=== PATIENT | male | born 1960 | race African-American/Black ===

== ENCOUNTER 2020-07-13 19:25 | Inpatient (IN) | payer MEDICAID, OTHER ==
[~2020-07-13] VITALS: Ht 177.8 cm; Wt 61.9 kg
[2020-07-13] MEDS ORDERED: dilTIAZem 25 MG/5 ML VIAL IV ONE (20:00)
[2020-07-13] MEDS ORDERED: dilTIAZem HCL 60 MG TAB PO ONE (20:00)
[2020-07-13 20:20] LABS: Eosinophils # (auto) 0 10 ^3/uL (0-0.8); Hematocrit 49.2 % (41.0-53.0); Hemoglobin 16.2 g/dL (13.5-17.5); Lymphocytes # (auto) 1.8 10 ^3/uL (0.4-5.4); Monocytes # (auto) 0.5 10 ^3/uL (0-1.3); Monocytes % (auto) 11.5 % (0.0-12.0); White Blood Cell 4.5 10^3/uL (4.4-10.8)
[2020-07-13 20:22] LABS: Basophils # (auto) 0.1 10 ^3/uL (0-0.2); Basophils % (auto) 2.6 % (0.0-2.0); Eosinophils % (auto) 0.8 % (0.0-7.0); Lymphocytes % (auto) 39.5 % (10.0-50.0); Mean Corpuscular Hemoglobin 34.3 pg (28.0-32.0); Mean Corpuscular Hgb Conc. 32.8 g/dL (32.0-36.0); Mean Corpuscular Volume 104.6 fL (80.0-100.0); Neutrophils % (auto) 45.6 % (37.0-80.0); Nucleated Red Blood Cells % 0.2 %; Red Blood Cells 4.71 10^6/uL (4.5-5.90); Red Cell Distribution Width 15.3 % (11.8-14.3)
[2020-07-13 20:35] LABS: INR 1.39 (0.9-1.15); Partial Thromboplastin Time 29.6 sec (23.0-31.2)
[2020-07-13 20:36] LABS: Alanine Aminotransferase 118 U/L (16-61); Albumin 2.8 g/dL (3.4-5.0); Anion Gap 10 (5-15); Aspartate Aminotransferase 86 U/L (15-37); BUN/Creatinine Ratio 16.2; Blood Urea Nitrogen 21 mg/dL (7-18); Calcium 8.6 mg/dL (8.5-10.1); Carbon Dioxide 20 mmol/L (21-32); Chloride 103 mmol/L (98-107); GFR African American 72 mL/min; GFR Non-African American 60 mL/min; Glucose 130 mg/dL (74-106); Magnesium 2.2 mg/dL (1.6-2.6); Potassium 4.2 mmol/L (3.5-5.1); Sodium 133 mmol/L (136-145)
[2020-07-13 20:44] LABS: Alkaline Phosphatase 155 U/L (45-117); Bilirubin, Total 1.2 mg/dL (0.2-1.0); Total Protein 6.8 g/dL (6.4-8.2)
[2020-07-13] MEDS ORDERED: AZITHROMYCIN 500MG/ 250ML 250 ML IV ONE (23:15)
[2020-07-14 00:25] LABS: Lactic Acid w/Reflex 4.2 mmol/L (0.4-2.0)
[2020-07-14] MEDS ORDERED: MORPHINE SULFATE INJECTION 2 MG/ML SYRG IV PRN (00:45)
[2020-07-14] MEDS ORDERED: FUROSEMIDE 20 MG/2 ML VIAL IV ONE (00:45)
[2020-07-14] MEDS ORDERED: NITROGLYCERIN 0.4 MG SL TAB SL PRN (00:45)
[2020-07-14 01:01] LABS: CRP High Sensitivity 0.45 mg/dL (< 0.3)
[2020-07-14 01:18] LABS: Urine Amorphous Crystal FEW /hpf (None Seen); Urine Bacteria FEW /hpf (None Seen); Urine Blood Negative /uL (Negative); Urine Hyaline Cast FEW /lpf (0 - 2); Urine Mucus FEW (None Seen); Urine Specific Gravity 1.025 (1.001-1.035); Urine WBC 1 /hpf (0 - 3)
[2020-07-14] MEDS ORDERED: ENOXAPARIN SOD 100 MG/1 ML SYRINGE SC ONE (02:30)
[2020-07-14] MEDS ORDERED: ONDANSETRON HCL 4 MG/2 ML VIAL IV PRN (02:30)
[2020-07-14 07:50] LABS: Basophils # (auto) 0.1 10 ^3/uL (0-0.2); Basophils % (auto) 1.8 % (0.0-2.0); Eosinophils # (auto) 0 10 ^3/uL (0-0.8); Hematocrit 47.2 % (41.0-53.0); Hemoglobin 15.9 g/dL (13.5-17.5); Lymphocytes # (auto) 1.5 10 ^3/uL (0.4-5.4); Lymphocytes % (auto) 31.4 % (10.0-50.0); Mean Corpuscular Hemoglobin 34.6 pg (28.0-32.0); Mean Corpuscular Hgb Conc. 33.8 g/dL (32.0-36.0); Mean Corpuscular Volume 102.6 fL (80.0-100.0); Monocytes # (auto) 0.4 10 ^3/uL (0-1.3); Monocytes % (auto) 8.5 % (0.0-12.0); Neutrophils # (auto) 2.8 10 ^3/uL (1.6-8.6); Neutrophils % (auto) 58.3 % (37.0-80.0); Nucleated Red Blood Cells % 0.2 %; Red Cell Distribution Width 14.8 % (11.8-14.3); White Blood Cell 4.8 10^3/uL (4.4-10.8)
[2020-07-14 08:10] LABS: BUN/Creatinine Ratio 17.7; Calcium 8.3 mg/dL (8.5-10.1); Potassium 4.2 mmol/L (3.5-5.1)
[2020-07-14] MEDS ORDERED: ASCORBIC ACID 500 MG TAB PO SCH (10:00)
[2020-07-14] MEDS ORDERED: ZINC SULFATE 220mg CAP or TAB PO SCH (10:00)
[2020-07-14] MEDS ORDERED: cefTRIAXone 1GM/50ML D5W 50 ML IV SCH (10:00)
[2020-07-14] MEDS ORDERED: DOXYCYCLINE 100MG/250ML 250 ML IV SCH (10:00)
[2020-07-14] MEDS ORDERED: CHOLECALCIFEROL (VITD3) 2,000 UNIT CAP/TAB PO SCH (10:00)
[2020-07-14] MEDS ORDERED: METOPROLOL TARTRATE 25 MG TAB PO SCH (11:30)
[2020-07-14] MEDS ORDERED: ENOXAPARIN SOD 100 MG/1 ML SYRINGE SC SCH (15:00)
[2020-07-14] MEDS: FUROSEMIDE 40 MG/4 ML VIAL IV SCH ×2 (15:30→15:35)
[2020-07-14] MEDS ORDERED: DOXY-338 PO (16:24)
[2020-07-14] MEDS ORDERED: MET25T PO (16:24)
[2020-07-14] MEDS ORDERED: FURO1TAB33 PO (16:24)
[2020-07-14] MEDS ORDERED: APIX5TAB PO ×2 (16:24)
[2020-07-14] MEDS ORDERED: ALBUAER3 IN (16:24)
[2020-07-14] MEDS ORDERED: METO25TA5 PO (16:24)
[2020-07-14 16:30] VITALS: BP 121/96
[2020-07-14 20:13] VITALS: BP 110/80
[2020-07-14 21:36] VITALS: BP 114/71
[2020-07-14] MEDS ORDERED: APIXABAN 5 MG TAB PO SCH (22:00)
[2020-07-15] MEDS ORDERED: LISINOPRIL 5 MG TAB PO SCH (10:00)
[2020-07-15] MEDS ORDERED: METOPROLOL SUCCINATE XL 50 MG TAB PO SCH (10:00)
[2020-08-26] MEDS ORDERED: METOPROLOL TARTRATE 1MG/1ML-5ML VIAL IV SCH (20:15)
== END 2020-07-14 21:21 | disposition home health service (06) | DRG 139 ==
LOC: EDBD 19:25 → ER 19:32 → TELE 07-14 00:41 → EAST 07-14 13:28
PROVIDERS: ADMIT Hospitalist; ATTEND Hospitalist
DX: J18.9 Pneumonia, unspecified organism (principal); R06.03 Acute respiratory distress; I13.0 Hypertensive heart and chronic kidney disease with heart failure and stage 1 through stage 4 chronic kidney disease, or unspecified chronic kidney disease; I48.0 Paroxysmal atrial fibrillation; J98.11 Atelectasis; I42.9 Cardiomyopathy, unspecified; N18.9 Chronic kidney disease, unspecified; Z20.822 Contact with and (suspected) exposure to COVID-19; Z91.14 Patient's other noncompliance with medication regimen; I50.23 Acute on chronic systolic (congestive) heart failure
CPT/HCPCS: 36415; 71045; 80048; 80053; 81001; 82728; 83036; 83605; 83615; 83735; 83880; 84484; 85025; 85379; 85610; 85730; 86141; 87040; 87426; 93005; 93306; 96365; 96367; 96368; 96374; 96375; G0378; J0696; J2405; J3490

== ENCOUNTER 2020-07-29 01:37 | Inpatient (IN) | payer MEDICAID ==
[~2020-07-29] VITALS: Ht 170.2 cm; Wt 60.1 kg
[~2020-07-29 01:37] MED LIST: ALBUAER3 IN; APIX5TAB PO; DOXY-338 PO; FURO1TAB33 PO; METO25TA5 PO
[2020-07-29] MEDS ORDERED: MET25T PO (02:22)
[2020-07-29] MEDS ORDERED: DOXY-340 PO (02:22)
[2020-07-29] MEDS ORDERED: FUR20T PO (02:22)
[2020-07-29] MEDS ORDERED: dilTIAZem 25 MG/5 ML VIAL IV ONE ×3 (02:26→05:15)
[2020-07-29 02:34] LABS: Eosinophils # (auto) 0.1 10 ^3/uL (0-0.8); Hemoglobin 15.7 g/dL (13.5-17.5); Neutrophils # (auto) 2.2 10 ^3/uL (1.6-8.6)
[2020-07-29 02:36] LABS: Basophils # (auto) 0.1 10 ^3/uL (0-0.2); Basophils % (auto) 2.1 % (0.0-2.0); Eosinophils % (auto) 1.2 % (0.0-7.0); Hematocrit 48.2 % (41.0-53.0); Lymphocytes # (auto) 2.1 10 ^3/uL (0.4-5.4); Lymphocytes % (auto) 42.9 % (10.0-50.0); Mean Corpuscular Hemoglobin 33.8 pg (28.0-32.0); Mean Corpuscular Hgb Conc. 32.7 g/dL (32.0-36.0); Mean Corpuscular Volume 103.4 fL (80.0-100.0); Monocytes # (auto) 0.5 10 ^3/uL (0-1.3); Monocytes % (auto) 10.1 % (0.0-12.0); Neutrophils % (auto) 43.7 % (37.0-80.0); Nucleated Red Blood Cells % 0.6 %; Platelet Count (auto) 200 10^3/uL (140-450); Red Blood Cells 4.66 10^6/uL (4.5-5.90); Red Cell Distribution Width 14.7 % (11.8-14.3); White Blood Cell 4.9 10^3/uL (4.4-10.8)
[2020-07-29 02:53] LABS: BUN/Creatinine Ratio 16.4; Calcium 8.6 mg/dL (8.5-10.1); Potassium 4.3 mmol/L (3.5-5.1)
[2020-07-29 02:58] LABS: Bilirubin, Total 1.1 mg/dL (0.2-1.0)
[2020-07-29 03:07] LABS: INR 1.48 (0.9-1.15); Partial Thromboplastin Time 30.4 sec (23.0-31.2)
[2020-07-29] MEDS ORDERED: FUROSEMIDE 40 MG/4 ML VIAL IV ONE (03:30)
[2020-07-29] MEDS ORDERED: NITROGLYCERIN 0.4 MG SL TAB SL PRN (06:45)
[2020-07-29] MEDS ORDERED: MORPHINE SULF INJ 2 MG/ML SYRINGE 1ML IV PRN (06:45)
[2020-07-29 07:36] LABS: Basophils # (auto) 0 10 ^3/uL (0-0.2); Eosinophils # (auto) 0 10 ^3/uL (0-0.8); Monocytes # (auto) 0.4 10 ^3/uL (0-1.3); Neutrophils # (auto) 2.5 10 ^3/uL (1.6-8.6)
[2020-07-29 07:40] LABS: Basophils % (auto) 0.5 % (0.0-2.0); Eosinophils % (auto) 0.1 % (0.0-7.0); Hematocrit 45.6 % (41.0-53.0); Lymphocytes # (auto) 1.6 10 ^3/uL (0.4-5.4); Lymphocytes % (auto) 35.8 % (10.0-50.0); Mean Corpuscular Hemoglobin 34.1 pg (28.0-32.0); Mean Corpuscular Volume 103.4 fL (80.0-100.0); Monocytes % (auto) 9.6 % (0.0-12.0); Nucleated Red Blood Cells % 0.9 %; Platelet Count (auto) 191 10^3/uL (140-450); Red Blood Cells 4.41 10^6/uL (4.5-5.90); Red Cell Distribution Width 14.6 % (11.8-14.3); White Blood Cell 4.6 10^3/uL (4.4-10.8)
[2020-07-29 07:58] LABS: Albumin 2.9 g/dL (3.4-5.0); Potassium 4.8 mmol/L (3.5-5.1)
[2020-07-29 08:03] LABS: Bilirubin, Total 1.2 mg/dL (0.2-1.0)
[2020-07-29] MEDS: FUROSEMIDE 40 MG/4 ML VIAL IV SCH ×2 (08:40→21:22)
[2020-07-29] MEDS: METOPROLOL TARTRATE 25 MG TAB PO SCH ×2 (08:40→22:00)
[2020-07-29] MEDS ORDERED: APIXABAN 5 MG TAB PO SCH (10:00)
[2020-07-29] MEDS ORDERED: LORazepam 2MG/ML-1ML VIAL ONE (10:30)
[2020-07-29] MEDS ORDERED: ONDANSETRON HCL 4 MG/2 ML VIAL ONE (10:30)
[2020-07-29] MEDS: NOREPINEPHRINE 8 MG/250ML KIT 250 ML IV SCH (10:45)
[2020-07-29] MEDS ORDERED: ONDANSETRON HCL 4 MG/2 ML VIAL IV ONE (10:45)
[2020-07-29] MEDS ORDERED: LORazepam 2MG/ML-1ML VIAL IV ONE (10:45)
[2020-07-29] MEDS ORDERED: NOREPINEPHRINE 8 MG/250ML KIT 250 ML IV ONE (10:46)
[2020-07-29] MEDS ORDERED: DIGOXIN (250MCG/ML) 2 ML AMPULE IV ONE (11:15)
[2020-07-29] MEDS: PANTOPRAZOLE 40 MG TAB PO SCH (11:30)
[2020-07-29 19:30] VITALS: BP 125/96
[2020-07-29 21:00] VITALS: BP 126/75
[2020-07-29] MEDS: ENOXAPARIN SOD 60 MG/0.6 ML SYRINGE SC SCH (21:24)
[2020-07-29] MEDS: DOXYCYCLINE 100 MG TAB/CAP PO SCH (22:00)
[2020-07-29] MEDS: POTASSIUM CHL 10 Meq TABLET PO SCH (22:00)
[2020-07-29] MEDS ORDERED: INFLUENZA QUAD 2020-2021 0.5 ML SYRG IM ONE (23:30)
[2020-07-29] MEDS ORDERED: PNEUMOCOCCAL VACC POLYS 25 MCG/0.5 ML VIAL IM ONE (23:30)
[2020-07-30 05:00] VITALS: BP 111/79
[2020-07-30] MEDS: FUROSEMIDE 40 MG/4 ML VIAL IV SCH (05:57)
[2020-07-30 06:50] LABS: Basophils # (auto) 0 10 ^3/uL (0-0.2); Basophils % (auto) 0.7 % (0.0-2.0); Eosinophils # (auto) 0 10 ^3/uL (0-0.8); Eosinophils % (auto) 0.5 % (0.0-7.0); Hematocrit 45.8 % (41.0-53.0); Hemoglobin 15.4 g/dL (13.5-17.5); Lymphocytes # (auto) 2.2 10 ^3/uL (0.4-5.4); Lymphocytes % (auto) 42.9 % (10.0-50.0); Mean Corpuscular Hgb Conc. 33.6 g/dL (32.0-36.0); Mean Corpuscular Volume 101.4 fL (80.0-100.0); Monocytes # (auto) 0.5 10 ^3/uL (0-1.3); Monocytes % (auto) 10.9 % (0.0-12.0); Neutrophils # (auto) 2.3 10 ^3/uL (1.6-8.6); Nucleated Red Blood Cells % 0.6 %; Platelet Count (auto) 206 10^3/uL (140-450); Red Blood Cells 4.51 10^6/uL (4.5-5.90); Red Cell Distribution Width 14.4 % (11.8-14.3)
[2020-07-30 07:01] LABS: Chloride 101 mmol/L (98-107); Sodium 135 mmol/L (136-145)
[2020-07-30 07:12] LABS: Anion Gap 10 (5-15); BUN/Creatinine Ratio 15.4; Blood Urea Nitrogen 27 mg/dL (7-18); Calcium 9.2 mg/dL (8.5-10.1); Carbon Dioxide 24 mmol/L (21-32); GFR African American 51 mL/min; GFR Non-African American 42 mL/min; Glucose 96 mg/dL (74-106)
[2020-07-30 07:18] LABS: Potassium 5.8 mmol/L (3.5-5.1)
[2020-07-30 08:35] VITALS: BP 116/86
[2020-07-30] MEDS: POTASSIUM CHL 10 Meq TABLET PO SCH (10:00)
[2020-07-30] MEDS: DOXYCYCLINE 100 MG TAB/CAP PO SCH ×3 (10:00→22:00)
[2020-07-30] MEDS: METOPROLOL TARTRATE 25 MG TAB PO SCH ×3 (10:00→22:31)
[2020-07-30] MEDS: PANTOPRAZOLE 40 MG TAB PO SCH ×2 (10:00→10:04)
[2020-07-30] MEDS ORDERED: SODIUM ZIRCONIUM CYCL 10 GM PAK PO ONE (12:30)
[2020-07-30] MEDS: NOREPINEPHRINE 8 MG/250ML KIT 250 ML IV SCH (12:42)
[2020-07-30 13:00] VITALS: BP 124/95
[2020-07-30 15:41] LABS: BUN/Creatinine Ratio 16.8; Calcium 8.9 mg/dL (8.5-10.1); Potassium 4.4 mmol/L (3.5-5.1)
[2020-07-30 17:00] VITALS: BP 112/86
[2020-07-30] MEDS: ENOXAPARIN SOD 60 MG/0.6 ML SYRINGE SC SCH (20:30)
[2020-07-30 22:00] VITALS: BP 134/77
[2020-07-31 05:00] VITALS: BP 123/80
[2020-07-31 06:33] LABS: Protein, Urine 18.3 mg/dL (0.0-11.9)
[2020-07-31 06:42] LABS: Basophils # (auto) 0 10 ^3/uL (0-0.2); Eosinophils # (auto) 0 10 ^3/uL (0-0.8); Hemoglobin 14.8 g/dL (13.5-17.5); Lymphocytes # (auto) 1.9 10 ^3/uL (0.4-5.4); Neutrophils # (auto) 2.3 10 ^3/uL (1.6-8.6); White Blood Cell 4.7 10^3/uL (4.4-10.8)
[2020-07-31 06:45] LABS: Basophils % (auto) 0.7 % (0.0-2.0); Eosinophils % (auto) 0.3 % (0.0-7.0); Hematocrit 44.8 % (41.0-53.0); Lymphocytes % (auto) 39.8 % (10.0-50.0); Mean Corpuscular Hemoglobin 33.6 pg (28.0-32.0); Mean Corpuscular Hgb Conc. 33.1 g/dL (32.0-36.0); Mean Corpuscular Volume 101.4 fL (80.0-100.0); Monocytes # (auto) 0.5 10 ^3/uL (0-1.3); Monocytes % (auto) 9.7 % (0.0-12.0); Neutrophils % (auto) 49.5 % (37.0-80.0); Nucleated Red Blood Cells % 1.4 %; Platelet Count (auto) 191 10^3/uL (140-450); Red Blood Cells 4.42 10^6/uL (4.5-5.90); Red Cell Distribution Width 14.9 % (11.8-14.3)
[2020-07-31 07:05] LABS: Potassium 4.2 mmol/L (3.5-5.1)
[2020-07-31 07:27] LABS: BUN/Creatinine Ratio 20.3
[2020-07-31] MEDS: METOPROLOL TARTRATE 25 MG TAB PO SCH (08:30)
[2020-07-31] MEDS: DOXYCYCLINE 100 MG TAB/CAP PO SCH (08:30)
[2020-07-31] MEDS: PANTOPRAZOLE 40 MG TAB PO SCH (08:30)
[2020-07-31 08:46] VITALS: BP 120/74
[2020-07-31] MEDS ORDERED: FUROSEMIDE 40 MG TAB PO SCH (10:00)
[2020-07-31 13:02] VITALS: BP 111/87
[2020-07-31] MEDS: NOREPINEPHRINE 8 MG/250ML KIT 250 ML IV SCH (13:15)
[2020-07-31 16:54] VITALS: BP 113/88
[2020-07-31] MEDS ORDERED: DOXY-338 PO (18:02)
== END 2020-07-31 21:01 | disposition home or self-care (01) | DRG 194 ==
LOC: EDBD 01:37 → ER 01:37 → TELE 01:38 → DOU IN ADS 19:30
PROVIDERS: ADMIT Hospitalist; ATTEND Hospitalist
PROC: 0W9B3ZZ Drainage of Left Pleural Cavity, Percutaneous Approach (ICD-10-PCS; principal; 2020-07-30)
PROC: 0W993ZZ Drainage of Right Pleural Cavity, Percutaneous Approach (ICD-10-PCS; 2020-07-31)
DX: I13.0 Hypertensive heart and chronic kidney disease with heart failure and stage 1 through stage 4 chronic kidney disease, or unspecified chronic kidney disease (principal); N17.9 Acute kidney failure, unspecified; E87.5 Hyperkalemia; J91.8 Pleural effusion in other conditions classified elsewhere; I50.23 Acute on chronic systolic (congestive) heart failure; Z20.822 Contact with and (suspected) exposure to COVID-19; N18.31 Chronic kidney disease, stage 3a; I48.91 Unspecified atrial fibrillation; Z79.01 Long term (current) use of anticoagulants; Z79.899 Other long term (current) drug therapy; Z82.3 Family history of stroke; Z82.49 Family history of ischemic heart disease and other diseases of the circulatory system; Z91.14 Patient's other noncompliance with medication regimen; Z28.82 Immunization not carried out because of caregiver refusal
CPT/HCPCS: 36415; 71045; 76604; 80048; 80053; 82570; 82962; 83735; 83880; 84156; 84300; 84484; 85025; 85610; 85730; 87070; 87081; 87205; 87426; 89051; 96365; 96375; 96376; G0378; J2405

== ENCOUNTER 2020-08-09 15:15 | Inpatient (IN) | payer MEDICAID ==
[~2020-08-09] VITALS: Ht 170.2 cm; Wt 56.7 kg
[2020-08-09] MEDS ORDERED: ASPirin 81 mg TAB PO ONE (15:45)
[2020-08-09] MEDS ORDERED: dilTIAZem 25 MG/5 ML VIAL IV ONE (15:45)
[2020-08-09 16:06] LABS: Basophils # (auto) 0 10 ^3/uL (0-0.2); Eosinophils # (auto) 0 10 ^3/uL (0-0.8); Lymphocytes # (auto) 1.7 10 ^3/uL (0.4-5.4); Monocytes # (auto) 0.3 10 ^3/uL (0-1.3); Neutrophils # (auto) 1.9 10 ^3/uL (1.6-8.6)
[2020-08-09 16:08] LABS: Basophils % (auto) 1.1 % (0.0-2.0); Eosinophils % (auto) 0.6 % (0.0-7.0); Hematocrit 46.6 % (41.0-53.0); Hemoglobin 15.5 g/dL (13.5-17.5); Lymphocytes % (auto) 43.6 % (10.0-50.0); Mean Corpuscular Hemoglobin 33.9 pg (28.0-32.0); Mean Corpuscular Hgb Conc. 33.3 g/dL (32.0-36.0); Mean Corpuscular Volume 101.8 fL (80.0-100.0); Monocytes % (auto) 7.9 % (0.0-12.0); Neutrophils % (auto) 46.8 % (37.0-80.0); Nucleated Red Blood Cells % 0.3 %; Platelet Count (auto) 200 10^3/uL (140-450); Red Blood Cells 4.58 10^6/uL (4.5-5.90); Red Cell Distribution Width 14.9 % (11.8-14.3)
[2020-08-09 16:23] LABS: Albumin 2.5 g/dL (3.4-5.0); Calcium 6.9 mg/dL (8.5-10.1); INR 1.52 (0.9-1.15); Partial Thromboplastin Time 31.6 sec (23.0-31.2); Potassium 3.1 mmol/L (3.5-5.1)
[2020-08-09 16:29] LABS: BUN/Creatinine Ratio 15.9; Bilirubin, Total 0.8 mg/dL (0.2-1.0); Total Protein 6.1 g/dL (6.4-8.2)
[2020-08-09 17:18] LABS: Urine Bacteria NONE SEEN /hpf (None Seen); Urine Blood Negative /uL (Negative); Urine Mucus FEW (None Seen); Urine Specific Gravity 1.017 (1.001-1.035); Urine WBC 1 /hpf (0 - 3)
[2020-08-09] MEDS ORDERED: FUROSEMIDE 40 MG/4 ML VIAL IV ONE (17:45)
[2020-08-09] MEDS ORDERED: NITROGLYCERIN 0.4 MG SL TAB SL PRN (18:00)
[2020-08-09] MEDS ORDERED: MORPHINE SULF INJ 2 MG/ML SYRINGE 1ML IV PRN (18:00)
[2020-08-09] MEDS ORDERED: ALBUTEROL SULF 2.5 MG/0.5ML(0.5%) NEB SOLN NEB PRN (18:00)
[2020-08-09] MEDS ORDERED: FUROSEMIDE 20 MG TAB PO SCH (18:11)
[2020-08-09 19:00] VITALS: BP 97/70
[2020-08-09] MEDS: APIXABAN 5 MG TAB PO SCH (21:42)
[2020-08-09] MEDS ORDERED: METOPROLOL SUCCINATE XL 50 MG TAB PO SCH (22:00)
[2020-08-09] MEDS ORDERED: METOPROLOL TARTRATE 25 MG TAB PO SCH ×2 (22:00)
[2020-08-09] MEDS: METOPROLOL TARTRATE 25 MG TAB PO SCH (22:18)
[2020-08-10] MEDS ORDERED: POTASSIUM CHL 20MEQ/100ML 100 ML IV ONE (03:15)
[2020-08-10] MEDS ORDERED: POTASSIUM CHL 20 Meq TABLET PO ONE (03:15)
[2020-08-10 05:00] VITALS: BP 110/46
[2020-08-10 05:15] VITALS: BP 110/46
[2020-08-10] MEDS: FUROSEMIDE 20 MG TAB PO SCH ×2 (06:00→06:02)
[2020-08-10 07:51] LABS: Basophils # (auto) 0 10 ^3/uL (0-0.2); Eosinophils # (auto) 0 10 ^3/uL (0-0.8); Eosinophils % (auto) 0.8 % (0.0-7.0); Monocytes # (auto) 0.5 10 ^3/uL (0-1.3); Neutrophils # (auto) 1.9 10 ^3/uL (1.6-8.6); Nucleated Red Blood Cells % 0.3 %; White Blood Cell 4.2 10^3/uL (4.4-10.8)
[2020-08-10 07:54] LABS: Basophils % (auto) 0.9 % (0.0-2.0); Hematocrit 43.7 % (41.0-53.0); Hemoglobin 14.4 g/dL (13.5-17.5); Lymphocytes # (auto) 1.8 10 ^3/uL (0.4-5.4); Mean Corpuscular Hemoglobin 33.6 pg (28.0-32.0); Monocytes % (auto) 11.6 % (0.0-12.0); Neutrophils % (auto) 44.7 % (37.0-80.0); Platelet Count (auto) 181 10^3/uL (140-450); Red Blood Cells 4.28 10^6/uL (4.5-5.90); Red Cell Distribution Width 14.5 % (11.8-14.3)
[2020-08-10 08:00] VITALS: BP 100/64
[2020-08-10 08:43] VITALS: BP 100/84
[2020-08-10] MEDS: APIXABAN 5 MG TAB PO SCH (09:59)
[2020-08-10] MEDS: METOPROLOL TARTRATE 25 MG TAB PO SCH (10:00)
[2020-08-10 13:00] VITALS: BP 101/67
[2020-08-10] MEDS ORDERED: DIGOXIN (250MCG/ML) 2 ML AMPULE IV ONE (14:00)
[2020-08-10 16:35] VITALS: BP 102/62
== END 2020-08-10 17:48 | disposition home health service (06) | DRG 201 ==
LOC: ER 15:15 → TELE 17:58 → TELE-WESTW 08-10 04:32
PROVIDERS: ADMIT Internal Medicine; ATTEND Internal Medicine
DX: I48.20 Chronic atrial fibrillation, unspecified (principal); I50.43 Acute on chronic combined systolic (congestive) and diastolic (congestive) heart failure; I11.0 Hypertensive heart disease with heart failure; F19.90 Other psychoactive substance use, unspecified, uncomplicated; I42.0 Dilated cardiomyopathy; I42.7 Cardiomyopathy due to drug and external agent; Z79.01 Long term (current) use of anticoagulants; Z82.49 Family history of ischemic heart disease and other diseases of the circulatory system; Z91.19 Patient's noncompliance with other medical treatment and regimen; Z20.822 Contact with and (suspected) exposure to COVID-19; Z82.3 Family history of stroke
CPT/HCPCS: 36415; 71045; 80053; 81001; 83880; 84443; 84484; 85025; 85610; 85730; 87081; 87426; 93005; 96374; 99291; G0378; J3480

== ENCOUNTER 2020-08-26 19:09 | Inpatient (IN) | payer MEDICAID ==
[~2020-08-26] VITALS: Ht 170.2 cm; Wt 62.7 kg
[~2020-08-26 19:09] MED LIST changes: -DOXY-338 PO
[2020-08-26] MEDS ORDERED: fentaNYL CITRATE 100 MCG/2 ML VL IV ONE (20:00)
[2020-08-26] MEDS ORDERED: AMIODARONE HCL 150 MG in D5W 5% 100 ML IV ONE (20:30)
[2020-08-26] MEDS ORDERED: AMIODARONE 450mg/250ml AE 250 ML IV SCH (20:30)
[2020-08-26] MEDS ORDERED: METOPROLOL TARTRATE 1MG/1ML-5ML VIAL IV SCH (20:45)
[2020-08-26 20:49] LABS: BUN/Creatinine Ratio 16.3; Calcium 8.2 mg/dL (8.5-10.1); Magnesium 1.9 mg/dL (1.6-2.6); Potassium 3.2 mmol/L (3.5-5.1)
[2020-08-26 20:52] LABS: Basophils # (auto) 0 10 ^3/uL (0-0.2); Eosinophils # (auto) 0 10 ^3/uL (0-0.8); Eosinophils % (auto) 0.5 % (0.0-7.0); Monocytes # (auto) 0.3 10 ^3/uL (0-1.3)
[2020-08-26 20:54] LABS: Basophils % (auto) 0.7 % (0.0-2.0); Hematocrit 46.8 % (41.0-53.0); Hemoglobin 15.4 g/dL (13.5-17.5); Lymphocytes # (auto) 1.5 10 ^3/uL (0.4-5.4); Mean Corpuscular Hemoglobin 33.5 pg (28.0-32.0); Mean Corpuscular Volume 101.5 fL (80.0-100.0); Monocytes % (auto) 7.6 % (0.0-12.0); Neutrophils % (auto) 53.2 % (37.0-80.0); Nucleated Red Blood Cells % 1.5 %; Platelet Count (auto) 152 10^3/uL (140-450); Red Cell Distribution Width 15.2 % (11.8-14.3); White Blood Cell 3.8 10^3/uL (4.4-10.8)
[2020-08-26 20:58] LABS: Bilirubin, Total 1.7 mg/dL (0.2-1.0); INR 1.38 (0.9-1.15); Total Protein 7.1 g/dL (6.4-8.2)
[2020-08-26] MEDS ORDERED: POTASSIUM CHL 20MEQ/100ML 100 ML IV ONE (23:15)
[2020-08-27] VITALS (8 sets, daily range): BP systolic 97–145; BP diastolic 70–97
[2020-08-27] MEDS ORDERED: POTASSIUM CHL 20 Meq TABLET PO ONE (02:00)
[2020-08-27] MEDS ORDERED: AMIODARONE 450mg/250ml AE 250 ML IV ONE (05:49)
[2020-08-27] MEDS: FUROSEMIDE 20 MG/2 ML VIAL IV SCH ×2 (09:55→10:00)
[2020-08-27] MEDS: APIXABAN 5 MG TAB PO SCH ×2 (10:00→22:02)
[2020-08-27 10:06] LABS: Basophils # (auto) 0 10 ^3/uL (0-0.2); Eosinophils # (auto) 0 10 ^3/uL (0-0.8); Monocytes # (auto) 0.9 10 ^3/uL (0-1.3); Neutrophils # (auto) 6.6 10 ^3/uL (1.6-8.6); Nucleated Red Blood Cells % 0.9 %
[2020-08-27 10:08] LABS: Basophils % (auto) 0.1 % (0.0-2.0); Hematocrit 46.9 % (41.0-53.0); Hemoglobin 15.4 g/dL (13.5-17.5); Lymphocytes # (auto) 0.7 10 ^3/uL (0.4-5.4); Lymphocytes % (auto) 8.3 % (10.0-50.0); Mean Corpuscular Hemoglobin 34.3 pg (28.0-32.0); Mean Corpuscular Volume 104.1 fL (80.0-100.0); Monocytes % (auto) 11.2 % (0.0-12.0); Neutrophils % (auto) 80.4 % (37.0-80.0); Platelet Count (auto) 129 10^3/uL (140-450); Red Cell Distribution Width 15.7 % (11.8-14.3); White Blood Cell 8.3 10^3/uL (4.4-10.8)
[2020-08-27 10:25] LABS: Calcium 9.3 mg/dL (8.5-10.1); Magnesium 2.2 mg/dL (1.6-2.6); Potassium 4.2 mmol/L (3.5-5.1)
[2020-08-27 10:30] LABS: BUN/Creatinine Ratio 11.4; Bilirubin, Total 5.4 mg/dL (0.2-1.0); Total Protein 6.7 g/dL (6.4-8.2)
[2020-08-27] MEDS ORDERED: ONDANSETRON HCL 4 MG/2 ML VIAL IV PRN (14:00)
[2020-08-27] MEDS ORDERED: hydrALAZINE HCL 20 MG/ML VL IV PRN (18:30)
[2020-08-27] MEDS ORDERED: HYDROcodone-ACET 5/325MG TAB PO PRN (18:30)
[2020-08-27] MEDS ORDERED: ALBUTEROL SULF 2.5 MG/0.5ML(0.5%) NEB SOLN NEB PRN (18:30)
[2020-08-27] MEDS: PANTOPRAZOLE 40 MG TAB PO SCH (18:30)
[2020-08-27] MEDS ORDERED: FUR20T PO (18:30)
[2020-08-27] MEDS ORDERED: ACETAMINOPHEN 325 MG TAB PO PRN (18:30)
[2020-08-27 20:11] LABS: Albumin 2.9 g/dL (3.4-5.0); Potassium 4.1 mmol/L (3.5-5.1)
[2020-08-27 20:21] LABS: BUN/Creatinine Ratio 15.5; Bilirubin, Total 4.7 mg/dL (0.2-1.0); Total Protein 6.5 g/dL (6.4-8.2)
[2020-08-27] MEDS: POTASSIUM CHL 10 Meq TABLET PO SCH (22:02)
[2020-08-28 00:17] LABS: Alcohol, Urine < 3.0 mg/dL (0-10); Amphetamine Screen, Urine NEGATIVE (NEGATIVE); Barbiturate Scree,Urine NEGATIVE (NEGATIVE); Benzodiazephine Screen, Urine NEGATIVE (NEGATIVE); Cannabinoid Screen, Urine NEGATIVE (NEGATIVE); Cocaine Screen, Urine NEGATIVE (NEGATIVE); Opiate Scree,Urine NEGATIVE (NEGATIVE); Phencyclidine Screen, Urine NEGATIVE (NEGATIVE)
[2020-08-28 00:19] LABS: Urine Bacteria NONE SEEN /hpf (None Seen); Urine Blood Negative /uL (Negative); Urine Hyaline Cast MANY /lpf (0 - 2); Urine Mucus FEW (None Seen); Urine WBC 3 /hpf (0 - 3)
[2020-08-28 05:00] VITALS: BP 96/64
[2020-08-28] MEDS ORDERED: FUROSEMIDE 20 MG TAB PO SCH (06:00)
[2020-08-28 07:48] LABS: Basophils # (auto) 0 10 ^3/uL (0-0.2); Basophils % (auto) 0.2 % (0.0-2.0); Eosinophils # (auto) 0 10 ^3/uL (0-0.8); Hematocrit 42.4 % (41.0-53.0); Hemoglobin 14.2 g/dL (13.5-17.5); Lymphocytes # (auto) 1.2 10 ^3/uL (0.4-5.4); Lymphocytes % (auto) 14.4 % (10.0-50.0); Mean Corpuscular Hemoglobin 33.9 pg (28.0-32.0); Mean Corpuscular Hgb Conc. 33.5 g/dL (32.0-36.0); Mean Corpuscular Volume 101.4 fL (80.0-100.0); Monocytes # (auto) 0.5 10 ^3/uL (0-1.3); Neutrophils # (auto) 6.4 10 ^3/uL (1.6-8.6); Neutrophils % (auto) 79.4 % (37.0-80.0); Nucleated Red Blood Cells % 0.3 %; Platelet Count (auto) 121 10^3/uL (140-450); Red Blood Cells 4.18 10^6/uL (4.5-5.90)
[2020-08-28 08:05] LABS: BUN/Creatinine Ratio 19.2; Calcium 8.3 mg/dL (8.5-10.1); Potassium 4.9 mmol/L (3.5-5.1)
[2020-08-28 09:00] VITALS: BP 122/74
[2020-08-28] MEDS ORDERED: METOPROLOL TARTRATE 1MG/1ML-5ML VIAL IV SCH (09:00)
[2020-08-28] MEDS: APIXABAN 5 MG TAB PO SCH ×2 (10:32→22:26)
[2020-08-28] MEDS: POTASSIUM CHL 10 Meq TABLET PO SCH ×2 (10:32→22:27)
[2020-08-28] MEDS: PANTOPRAZOLE 40 MG TAB PO SCH (10:32)
[2020-08-28 13:00] VITALS: BP 132/75
[2020-08-28 16:57] VITALS: BP 119/74
[2020-08-28] MEDS: FUROSEMIDE 20 MG/2 ML VIAL IV SCH (18:12)
[2020-08-28 20:00] VITALS: BP 110/89
[2020-08-28 22:00] VITALS: BP 110/89
[2020-08-28] MEDS: METOPROLOL TARTRATE 25 MG TAB PO SCH (22:28)
[2020-08-29] MEDS ORDERED: LORazepam 2MG/ML-1ML VIAL IV PRN (03:45)
[2020-08-29 05:00] VITALS: BP 118/91
[2020-08-29] MEDS: FUROSEMIDE 20 MG/2 ML VIAL IV SCH (06:05)
[2020-08-29 07:12] LABS: Basophils # (auto) 0 10 ^3/uL (0-0.2); Basophils % (auto) 0.2 % (0.0-2.0); Eosinophils # (auto) 0 10 ^3/uL (0-0.8); Hemoglobin 14.3 g/dL (13.5-17.5); Lymphocytes # (auto) 1.7 10 ^3/uL (0.4-5.4); Monocytes # (auto) 0.5 10 ^3/uL (0-1.3); Nucleated Red Blood Cells % 1.1 %
[2020-08-29 07:16] LABS: Eosinophils % (auto) 0.4 % (0.0-7.0); Hematocrit 42.8 % (41.0-53.0); Lymphocytes % (auto) 25.7 % (10.0-50.0); Mean Corpuscular Hgb Conc. 33.5 g/dL (32.0-36.0); Mean Corpuscular Volume 101.5 fL (80.0-100.0); Monocytes % (auto) 7.5 % (0.0-12.0); Neutrophils # (auto) 4.4 10 ^3/uL (1.6-8.6); Neutrophils % (auto) 66.2 % (37.0-80.0); Platelet Count (auto) 119 10^3/uL (140-450); Red Blood Cells 4.22 10^6/uL (4.5-5.90); Red Cell Distribution Width 14.8 % (11.8-14.3); White Blood Cell 6.6 10^3/uL (4.4-10.8)
[2020-08-29 07:17] LABS: BUN/Creatinine Ratio 27.3; Calcium 8.4 mg/dL (8.5-10.1); Potassium 4.1 mmol/L (3.5-5.1)
[2020-08-29 07:23] LABS: Albumin 2.8 g/dL (3.4-5.0); Bilirubin, Direct 1.5 mg/dL (0-0.2); Bilirubin, Total 3.7 mg/dL (0.2-1.0); Total Protein 6.3 g/dL (6.4-8.2)
[2020-08-29 08:00] VITALS: BP 94/60
[2020-08-29 09:02] VITALS: BP 94/60
[2020-08-29] MEDS: PANTOPRAZOLE 40 MG TAB PO SCH (10:29)
[2020-08-29] MEDS: POTASSIUM CHL 10 Meq TABLET PO SCH (10:29)
[2020-08-29] MEDS: APIXABAN 5 MG TAB PO SCH (10:29)
[2020-08-29] MEDS: METOPROLOL TARTRATE 25 MG TAB PO SCH (10:39)
[2020-08-29 12:44] LABS: Hepatitis A Ab IgM Negative
[2020-08-29 12:45] LABS: Hepatitis B Surface Antigen Negative (Negative); Hepatitis C Antibody Negative (Negative)
[2020-08-29 12:47] LABS: Hepatitis B Core IgM Positive
[2020-08-29 13:00] VITALS: BP 111/68
[2020-08-29] MEDS ORDERED: GADOTERATE MEG 10 MMOL/20ml INJ (0.5MMOL/ml) IV ONE (14:01)
[2020-08-29 16:43] VITALS: BP 112/90
== END 2020-08-29 16:40 | disposition left against medical advice (07) | DRG 201 ==
LOC: ER 19:09 → TELE 23:46 → TELE-EAST 08-27 03:34 → TELE-WESTW 08-27 11:46
PROVIDERS: ADMIT Hospitalist; ATTEND Hospitalist
DX: I48.91 Unspecified atrial fibrillation (principal); I13.0 Hypertensive heart and chronic kidney disease with heart failure and stage 1 through stage 4 chronic kidney disease, or unspecified chronic kidney disease; Z20.822 Contact with and (suspected) exposure to COVID-19; I50.23 Acute on chronic systolic (congestive) heart failure; N18.30 Chronic kidney disease, stage 3 unspecified; F15.20 Other stimulant dependence, uncomplicated; I42.0 Dilated cardiomyopathy; R04.0 Epistaxis; R74.01 Elevation of levels of liver transaminase levels; T46.2X5A Adverse effect of other antidysrhythmic drugs, initial encounter; R79.89 Other specified abnormal findings of blood chemistry; Z53.29 Procedure and treatment not carried out because of patient's decision for other reasons; Z82.3 Family history of stroke; Z82.49 Family history of ischemic heart disease and other diseases of the circulatory system; Z91.14 Patient's other noncompliance with medication regimen; Z91.11 Patient's noncompliance with dietary regimen; Z86.19 Personal history of other infectious and parasitic diseases; Y92.89 Other specified places as the place of occurrence of the external cause
CPT/HCPCS: 36415; 71045; 74176; 76700; 80048; 80053; 80074; 80076; 80307; 80320; 81001; 83735; 83880; 84484; 85025; 85610; 85730; 87081; 87426; 93005; 96365; 99291; G0378; J2405; J3480; J7060